=== PATIENT | female | born 1960 | race Caucasian/White ===

== ENCOUNTER 2019-07-14 13:39 | Day surgery (SDC) | payer MEDICARE ==
[2019-07-14] MEDS ORDERED: Xylocaine 1% Vial 30 ML PF IJ ONE (13:40)
[2019-07-14] MEDS ORDERED: Sodium Chloride 0.9(Preservative Free) 10 ML IJ ONE (13:40)
[2019-07-14] MEDS ORDERED: Depo-Medrol 40 MG/ML IM ONE (13:40)
--- NOTE | 2019-07-14 17:04 | XRAY ---
Indication: Right L4-S1 TYRESE. Intraoperative fluoroscopy was provided for 30 seconds. 4 digital spot images submitted for interpretation demonstrates posterior needle tips projecting over the expected course of the right L4 and L5 nerve roots. Small amount of contrast injected for needle tip placement. Correlate with intraoperative findings/report.
--- NOTE | 2019-07-14 17:06 | XRAY ---
30 seconds fluoroscopy time in surgery for right L4-S1 TYRESE.
== END 2019-07-14 16:33 | disposition home or self-care (01) ==
LOC: SDC-PAIN 13:39
PROVIDERS: ATTEND Psychiatry & Neurology Pain Medicine
DX: M54.16 Radiculopathy, lumbar region (principal); E11.9 Type 2 diabetes mellitus without complications; J44.9 Chronic obstructive pulmonary disease, unspecified; G47.30 Sleep apnea, unspecified; M06.9 Rheumatoid arthritis, unspecified; D64.9 Anemia, unspecified; F41.8 Other specified anxiety disorders; M79.7 Fibromyalgia; G25.81 Restless legs syndrome; Z79.899 Other long term (current) drug therapy
CPT/HCPCS: 72100; 77003; J1030; J2001

== ENCOUNTER 2020-12-28 00:59 | Emergency (ER) | payer MEDICARE ==
[2020-12-28] MEDS ORDERED: Hydromorphone 1 mg/ml Injection IM ONE (01:01)
[2020-12-28] MEDS ORDERED: TORAdol 30 mg Injection IM ONE (01:01)
--- NOTE | 2020-12-28 01:07 | ERPHSYRPT ---
- History of Present Illness Time Seen by Provider: 12/28/20 01:00 Source: patient Exam Limitations: no limitations Patient Subjective Stated Complaint: Back pain Physician History: Patient has a flareup of her back pain over the past 4 days after doing multiple heavy lifting and bending over the weekend while moving furniture. She has tried ice, heat, and ibuprofen without any relief of her symptoms. Patient was unable to get into her primary care physician's office this week due to weather and cancellation of the office, so she came in this evening due to pain persisting and having a ride after her daughter was able to bring her. Timing/Duration: day(s) (4) Method of Injury: bending, lifting Quality: sharp, aching Back Pain Location: lumbar spine Severity of Pain-Max: severe Severity of Pain-Current: severe Modifying Factors: Worsens With: movement Associated Symptoms: lower back pain, No fever, No chills, No sweating, No urinary incontinence, No loss of bowel control, No nausea, No vomiting, No problems urinating, No dizziness, No numbness in legs/feet, No weakness, No sensory/motor loss, No tingling in legs/feet Previous symptoms: same symptoms as today, no recent treatment Allergies/Adverse Reactions: No Known Drug Allergies Allergy (Verified 12/28/20 01:09) Home Medications: Klonopin 03/23/13 [History] Lasix 03/23/13 [History] Mirapex 03/23/13 [History] Paxil 03/23/13 [History] Potassium 03/23/13 [History] Hx Tetanus, Diphtheria Vaccination/Date Given: Yes Hx Influenza Vaccination/Date Given: No Hx Pneumococcal Vaccination/Date Given: No - Review of Systems Constitutional: No Fever, No Chills, No Fatigue Eyes: No Symptoms Ears, Nose, & Throat: No Symptoms Respiratory: No Cough, No Dyspnea Cardiac: No Chest Pain, No Edema, No Syncope Abdominal/Gastrointestinal: No Abdominal Pain, No Nausea, No Vomiting, No Diarrhea, No Hematemesis, No Hematochezia, No Melena Genitourinary Symptoms: No Dysuria, No Hematuria, No Incontinence, No Urinary Retention, No Flank Pain Musculoskeletal: Back Pain, No Neck Pain, No Fall Skin: No Rash, No Skin Lesions Neurological: No Dizziness, No Focal Weakness, No Paralysis, No Parasthesia, No Sensory Changes Psychological: No Symptoms Endocrine: No Symptoms Hematologic/Lymphatic: No Easy Bruising All Other Systems: Reviewed and Negative - Past Medical History Pertinent Past Medical History: Yes Neurological History: No Pertinent History ENT History: No Pertinent History Cardiac History: Congestive Heart Failure Respiratory History: COPD, Sleep Apnea, Other Endocrine Medical History: No Pertinent History Musculoskeletal History: Fibromyalgia, Other GI Medical History: No Pertinent History Psycho-Social History: Depression Other Medical History: RESTLESS LEG - Past Surgical History Past Surgical History: Yes Respiratory: Other Gastrointestinal: Other Female Surgical History: Tubal Ligation Other Surgical History: CHEST TUBES - Social History Smoking Status: Current every day smoker Exposure to second hand smoke: Yes Drug Use: marijuana Patient Lives Alone: No - Nursing Vital Signs Nursing Vital Signs: Initial Vital Signs Temperature 98.5 F 12/28/20 01:00 Pulse Rate 93 H 12/28/20 01:00 Respiratory Rate 22 12/28/20 01:00 Blood Pressure 104/73 12/28/20 01:00 O2 Sat by Pulse Oximetry 95 12/28/20 01:00 Pain Scale Pain Intensity [Lower 9 Posterior Back] Pain Intensity 9 - Physical Exam General Appearance: no apparent distress, alert Eye Exam: PERRL/EOMI, eyes nml inspection, No scleral icterus, No pale conjunctivae Neck Exam: normal inspection, non-tender, supple, full range of motion, No meningismus, No midline tenderness Respiratory Exam: normal breath sounds, lungs clear, airway intact, No resp iratory distress Cardiovascular Exam: regular rate/rhythm, normal heart sounds, normal peripheral pulses Gastrointestinal Exam: soft, normal bowel sounds, No tenderness, No distention, No mass, No rebound Back Exam: decreased range of motion, muscle spasm, No normal range of motion, No CVA tenderness, No vertebral tenderness Extremity Exam: normal inspection, normal range of motion, pelvis stable, No calf tenderness, No hari's sign, No pedal edema Neurologic Exam: alert, oriented x 3, cooperative, food beverage manager II-XII nml as tested, normal mood/affect, nml station & gait, sensation nml, No motor deficits Skin Exam: normal color, warm, dry, No rash, No jaundice SpO2 Interpretation: normal O2 Delivery: Room Air - Course Nursing assessment & vital signs reviewed: Yes Ordered Tests: Active Orders 24 hr Category Date Time Status UA W/RFX UR CULTURE Stat Lab 12/28/20 01:16 Completed Medication Summary Discontinued Medications Generic Name Dose Route Start Last Admin Trade Name Adi PRN Reason Stop Dose Admin Hydromorphone HCl 1 mg 12/28/20 01:01 12/28/20 01:20 Hydromorphone 1 Mg/Ml Injection IM 12/28/20 01:02 1 mg STAT ONE Administration Hydromorphone HCl Confirm 12/28/20 01:13 Hydromorphone 1 Mg/Ml Injection Administered 12/28/20 01:14 Dose 1 mg .ROUTE .STK-MED ONE Ketorolac Tromethamine 30 mg 12/28/20 01:01 12/28/20 01:19 Toradol 30 Mg Injection IM 12/28/20 01:02 30 mg STAT ONE Administration Ketorolac Tromethamine Confirm 12/28/20 01:12 Toradol 30 Mg Injection Administered 12/28/20 01:13 Dose 30 mg .ROUTE .STK-MED ONE Lab/Rad Data: Laboratory Results 12/28/20 Range/Units 01:16 Urine Color YELLOW (YELLOW) Urine Appearance SLIGHTLY CLOUDY (CLEAR) Urine pH 5.0 (5-6) Ur Specific [place] 1.019 (1.005-1.025) Urine Protein NEGATIVE (Negative) Urine Ketones NEGATIVE (NEGATIVE) Urine Blood NEGATIVE (0-5) Kwaku/ul Urine Nitrite NEGATIVE (NEGATIVE) Urine Bilirubin NEGATIVE (NEGATIVE) Urine Urobilinogen 2 (0-1) mg/dL Ur Leukocyte Esterase TRACE (NEGATIVE) Urine WBC (Auto) 3-5 (0-5) /HPF Urine RBC (Auto) NONE (0-2) /HPF U Hyaline Cast (Auto) 0-2 (0-2) /LPF U Epithel Cells (Auto) RARE (FEW) /HPF Urine Bacteria (Auto) RARE (NEGATIVE) /HPF Urine Mucus (Auto) SLIGHT (NEGATIVE) /HPF Urine Culture Reflexed NO (NO) Urine Glucose NEGATIVE (NEGATIVE) mg/dL - Progress Progress: improved, pain not gone completely Progress Note: 12/28/20 01:47 Patient came into the emergency department with low back pain from overuse injury and it was not responding to her [id number] therapies. Patient had no concerning review of symptoms and had no neurologic deficits on her examination, so there is no need for any imaging studies at this time as she had no mechanism of the trauma to her back and no neurologic symptoms or signs on her examination. Patient did give us a urine which did not show anything suggestive of an infectious process or any signs of blood or protein to suggest a nephrolithiasis, so she was treated for symptomatic relief with IM Toradol and IM Dilaudid which improved her low back pain significantly. Patient be discharged home with recommendation to follow-up with her primary care provider in the next 2 days to continue evaluation of her symptoms and discuss other therapies such as referral to physical therapy, career and technology education teacher, or do any other imaging studies as an outpatient as needed. We reviewed with patient the importance of follow-up and what signs and symptoms to return back to the emergency department as patient does not require any further imaging, lab work, admission or transfer or any immediate surgical consultation at this time and can be followed up as an outpatient. Counseled pt/family regarding: lab results, diagnosis, need for follow-up - Departure Departure Disposition: Home Clinical Impression: Acute low back pain Qualifiers: Back pain laterality: bilateral Sciatica presence: without sciatica Qualified Code(s): M54.5 - Low back pain Condition: Good Critical Care Time: No Referrals: FELIPE ROSARIO [Primary Care Provider] - 12/28/20 Instructions: Low Back Pain (DC) Additional Instructions: Return immediately back to the emergency department if you have any worsening back pain, new fever, numbness upon the area you sit up on, symptoms going down both legs, new numbness in either leg, new weakness in either leg, difficulty starting your urinary stream, urine retention, diarrhea you cannot control, blood in the stool, blood in the urine, painful urination or any other concerning signs or symptoms that were not present at today's emergency department visit for immediate reevaluation in the emergency department Prescriptions: Etodolac 400 mg [Lodine 400 mg] 400 mg PO BID PRN PRN #20 tablet PRN Reason: Pain Tizanidine HCl 4 mg [Zanaflex 4 MG] 4 mg PO TID PRN #12 tablet PRN Reason: Muscle Spasms
[2020-12-28 01:09] VITALS: O2SAT 95
[2020-12-28] MEDS ORDERED: TORAdol 30 mg Injection ONE (01:12)
[2020-12-28] MEDS ORDERED: Hydromorphone 1 mg/ml Injection ONE (01:13)
[2020-12-28 01:32] LABS: Appearance SLIGHTLY CLOUDY (CLEAR); Bilirubin NEGATIVE (NEGATIVE); Blood NEGATIVE Ery/ul (0-5); Epithelial Cells RARE /HPF (FEW); Glucose NEGATIVE (NEGATIVE); Hyaline Casts 0-2 /LPF (0-2); Ketones NEGATIVE (NEGATIVE); Leukocyte Esterase TRACE (NEGATIVE); Mucus SLIGHT /HPF (NEGATIVE); Nitrite NEGATIVE (NEGATIVE); Protein,Urine Dip NEGATIVE (Negative); Specific Gravity 1.019 (1.005-1.025); Urobilinogen 2 mg/dL (0-1)
[2020-12-28 01:37] LABS: Bacteria RARE /HPF (NEGATIVE)
[2020-12-28 02:10] VITALS: BP 102/62; PULSE 96
== END 2020-12-28 02:15 | disposition home or self-care (01) ==
LOC: ED 00:59
DX: M54.5 Low back pain (principal); X50.0XXA Overexertion from strenuous movement or load, initial encounter; Z79.899 Other long term (current) drug therapy
CPT/HCPCS: 81001; 96372; 99284; J1170; J1885